=== PATIENT | male | born 1970 | race Caucasian/White ===

== ENCOUNTER 2017-04-12 09:58 | Emergency (ER) | payer BC ==
[2017-04-12 10:21] VITALS: RESP 16
--- NOTE | 2017-04-12 11:23 | EDPHY ---
H & P Stated Complaint: R low back pain Time Seen by Provider: 04/12/17 11:06 HPI/ROS: CHIEF COMPLAINT: Right lower back pain x1 week HISTORY OF PRESENT ILLNESS: 46-year-old male generally healthy complaining of atraumatic right lower back pain for the past 1 week with intermittent paresthesia to his right lower extremity currently none. Pain is reproducible with certain movements. His taken 100-200 mg of ibuprofen which provides mild relief. No incontinence. No retention. No saddle anesthesia. No chest pain. No IV drug use. PRIMARY CARE PROVIDER: Phan patrick REVIEW OF SYSTEMS: A ten point review of systems was performed and is negative with the exception of the items mentioned in the HPI PAST MEDICAL & SURGICAL HISTORY: No pertinent medical or surgical history SOCIAL HISTORY: Works from home. Nonsmoker no IV drug use PHYSICAL EXAM (Prior to examination, patient consented to physical exam, hands were washed and my usual and customary physical exam procedures followed) 1) GENERAL: Well-developed, well-nourished, alert and oriented. Appears to be in no acute distress. Appears to be in no acute distress 2) HEAD: Normocephalic, atraumatic 3) HEENT: Pupils equal, round, reactive to light bilaterally. Sclera anicteric. Nasopharynx, oropharynx, clear, no lesions. 4) NECK: Full range of motion, no meningeal signs. 5) LUNGS: Clear auscultation bilaterally, no wheezes, no rhonchi, no retractions. 6) HEART: Regular rate and rhythm, no murmur, no heave, no gallop. 7) ABDOMEN: No guarding, no rebound, no focal tenderness, negative McBurney's, negative Yeboah's, negative Rovsing's, negative peritoneal sign, 8) MUSCULOSKELETAL: Moving all extremities, no focal areas of tenderness, no obvious trauma. No peripheral edema or discoloration. 9) BACK: tender to palpation right lumbar paraspinous muscle. No CVA tenderness , no midline vertebral tenderness, no fluctuance, no step-off, no obvious trauma , no visual or palpable abnormality. Patella, Achilles reflexes intact to bilateral strength 5/5 10) SKIN: No rash, no petechiae. 11) NEURO: Awake, alert, and oriented to person, place and time. Answers questions appropriately. There were no obvious focal neurologic abnormalities. No cerebellar dysfunction. Normal steady gait. Upper and lower extremities bilaterally with strength 5 / 5, reflexes 2+.. DIFFERENTIAL DIAGNOSIS: In no particular order, including but not limited to, fracture, sprain/strain, cauda equina, spinal infectious etiology. MEDICAL DECISION MAKING Lower index of suspicion for cauda equina, epidural abscess, epidural hematoma, lumbar myositis, diskitis, as the patient is neurologically intact in the lower extremities, has patella and Achilles reflexes intact and equal bilaterally, has no neurologic deficits, no incontinence, no retention, no midline pain, no fluctuance, afebrile, no flulike symptoms. Pain may be secondary to muscular strain, may be secondary to discogenic etiology. At this point I do not identify definitive indication for emergent MRI, however patient may necessitate this on an outpatient basis. I recommended discharged with Medrol Dosepak, Flexeril hand follow up with his primary care provider. Patient given acute back pain precautions. Patient verbalizes understanding of discharge instructions. I believe them be competent decision-makers. All questions and concerns have been addressed by me. Ample opportunity for questions have been provided . The patient understands that this diagnosis is provisional and can never be 100% accurate. Usual and customary warnings were given concerning the clinical impression and all the patient's questions were answered. The patient was instructed to return to the emergency department should her symptoms worsen or return, or develop any new symptoms, otherwise to followup as directed in discharge instructions. Care of patient under supervision of secondary supervising physician Dr Buckley . - Personal History Current Tetanus/Diphtheria Vaccine: Yes Current Tetanus Diphtheria and Acellular Pertussis (TDAP): Yes - Medical/Surgical History Hx Asthma: No Hx Chronic Respiratory Disease: No Hx Diabetes: No Hx Cardiac Disease: No Hx Renal Disease: No Hx Cirrhosis: No Hx Alcoholism: No Hx HIV/AIDS: No Hx Splenectomy or Spleen Trauma: No Other PMH: l knee sx x3; - Social History Smoking Status: Former smoker Constitutional: Initial Vital Signs Temperature (C) 36.4 C 04/12/17 10:19 Heart Rate 56 L 04/12/17 10:19 Respiratory Rate 16 04/12/17 10:19 Blood Pressure 107/66 04/12/17 10:19 O2 Sat (%) 99 04/12/17 10:19 O2 Delivery Mode Room Air Allergies/Adverse Reactions: No Known Allergies Allergy (Unverified 04/12/17 10:19) Home Medications: Medication Instructions Recorded Cyclobenzaprine [Flexeril 10 MG 10 mg PO TID #10 tab 04/12/17 (RX)] methylPREDNISolone [Medrol Dose 4 mg PO DAILY #1 ea 04/12/17 Vahid] Departure - Departure Disposition: Home, Routine, Self-Care Clinical Impression: Low back pain Qualifiers: Chronicity: acute Back pain laterality: right Sciatica presence: with sciatica Sciatica laterality: sciatica of right side Qualified Code(s): M54.41 - Lumbago with sciatica, right side Condition: Good Instructions: Low Back Strain (ED) Additional Instructions: Seek medical attention if you develop new or worsening pain, if you develop bladder or bowel dysfunction, numbness around your perineum, foot drop, or any other symptoms that concern you. Referrals: [facility] [Outside] - 1-2 days without fail Prescriptions: Cyclobenzaprine [Flexeril 10 MG (RX)] 10 mg PO TID #10 tab methylPREDNISolone [Medrol Dose Vahid] 4 mg PO DAILY #1 ea
[2017-04-12 11:56] VITALS: BP 110/71; PULSE 58; TEMP 96.8; O2SAT 96
== END 2017-04-12 11:59 | disposition home or self-care (01) ==
DX: M54.41 Lumbago with sciatica, right side (principal); Z87.891 Personal history of nicotine dependence